=== PATIENT | female | born 1940 | race Caucasian/White ===

== ENCOUNTER 2017-07-01 15:04 | Inpatient (IN) | payer MEDICARE, BC ==
[~2017-07-01] VITALS: Ht 157.5 cm; Wt 59.1 kg
[~2017-07-01 15:04] MED LIST: ALPR.5 PO; AMIT50; ASPI81CH PO; AXERT PO; CHLAMI PO; CLOP75 PO; CONEST.625; CYCL10 PO; DIPATR PO; DIPH50 PO; DRISTAN; ESCI10 PO; ESOM20 PO; ESZO2 PO; HYDACE5 PO; HYDMOR4 PO; HYDPAM25 PO; IBUP800 PO; LEVSOD25 PO; LISI5 PO; LORA1 PO; MECL25 PO; MELA3 PO; METO50 PO; MULVITB&C PO; NITRSPRAY SL; Norco 5-325 Ta1 EACH PO; OMEP10ER PO; ONDA4ODT MM; PEPCID; PIRO10 PO; PRAM.5 PO; PRILOSEC; PROACE100 PO; PROM25 PO; PROP10 PO; PROP20 PO; QUET25 PO; RANI150 PO; SANCTURA; SANCTURA PO; SANTURA PO; SERT100; THEO100ERA PO; THEO200ERA PO; TOLT4; TRAZ50 PO; VERA180ERB; ZOLP6.25 PO; [UNRECOGNIZED DRUG - OTHER]
[2017-07-01] MEDS ORDERED: CLOP75 PO (16:00)
[2017-07-01 16:14] LABS: BASOPHILS PERCENT AUTO 1 % (0-2); EOSINOPHILS ABSOLUTE AUTO 0.68 K/mm3 (0.00-0.68); EOSINOPHILS PERCENT AUTO 7 % (0-6); Hematocrit 43.4 % (33.0-51.0); Hemoglobin 14.6 g/dL (11.5-16.0); IMMATURE GRAN ABSOLUTE AUTO 0.03 K/mm3 (0.00-0.10); IMMATURE GRAN PERCENT AUTO 0 % (0-1); LYMPHOCYTES ABSOLUTE AUTO 2.74 K/mm3 (0.84-5.20); LYMPHOCYTES PERCENT AUTO 28 % (21-46); MONOCYTES ABSOLUTE AUTO 0.76 K/mm3 (0.16-1.47); MONOCYTES PERCENT AUTO 8 % (4-13); Mean Corpuscular HGB 29.8 pg (26.0-34.0); Mean Corpuscular HGB Conc 33.6 g/dL (31.5-36.5); Mean Corpuscular Volume 89 fL (80-100); Mean Platelet Volume 9.7 fL (9.1-12.4); NEUTROPHILS ABSOLUTE AUTO 5.45 K/mm3 (1.96-9.15); NEUTROPHILS PERCENT AUTO 56 % (41-73); Platelet Count 213 K/mm3 (150-400); RDW Coefficient Variation 13.9 % (11.7-14.2); RDW Standard Deviation 45.1 fL (35.1-46.3); White Blood Cell Count 9.76 K/mm3 (4.00-11.30)
[2017-07-01 16:25] LABS: International Normalized Ratio 1.07; Prothrombin Time Results 11.1 Sec (9.7-11.5)
[2017-07-01 16:42] LABS: Alanine Aminotransfer (ALT/SGP 18 U/L (12-78); Albumin, Blood 3.7 g/dL (3.4-5.0); Albumin/Globulin Ratio 1.2 (0.8-1.8); Alk Phos 88 U/L (50-136); Anion Gap 11 mmol/L (6-16); Aspartate Aminotrans (AST/SGOT 17 U/L (12-37); Bilirubin, Total 0.5 mg/dL (0.1-1.0); Blood Urea Nitrogen 16 mg/dL (8-24); Bun/Creatinine Ratio 18.1 (12.0-20.0); CO2, Blood 22 mmol/L (21-32); Calcium, Blood 8.9 mg/dL (8.5-10.1); Chloride, Blood 107 mmol/L (98-108); Creatinine, Blood 0.89 mg/dL (0.40-1.00); Globulin, Blood 3.1 g/dL (2.2-4.0); Glomerular Filtration Rate >60 (60-); Glucose, Blood 83 mg/dL (70-99); Potassium, Blood 3.9 mmol/L (3.5-5.5); Sodium, Blood 140 mmol/L (136-145); Total Protein, Blood 6.8 g/dL (6.4-8.2)
[2017-07-02 02:25] LABS: BASOPHILS PERCENT AUTO 1 % (0-2); EOSINOPHILS ABSOLUTE AUTO 0.88 K/mm3 (0.00-0.68); EOSINOPHILS PERCENT AUTO 10 % (0-6); Hematocrit 39.3 % (33.0-51.0); Hemoglobin 13.2 g/dL (11.5-16.0); IMMATURE GRAN ABSOLUTE AUTO 0.02 K/mm3 (0.00-0.10); IMMATURE GRAN PERCENT AUTO 0 % (0-1); LYMPHOCYTES ABSOLUTE AUTO 3.24 K/mm3 (0.84-5.20); LYMPHOCYTES PERCENT AUTO 38 % (21-46); MONOCYTES ABSOLUTE AUTO 0.71 K/mm3 (0.16-1.47); MONOCYTES PERCENT AUTO 8 % (4-13); Mean Corpuscular HGB 29.9 pg (26.0-34.0); Mean Corpuscular HGB Conc 33.6 g/dL (31.5-36.5); Mean Corpuscular Volume 89 fL (80-100); Mean Platelet Volume 9.6 fL (9.1-12.4); NEUTROPHILS PERCENT AUTO 43 % (41-73); Platelet Count 187 K/mm3 (150-400); RDW Coefficient Variation 13.9 % (11.7-14.2); RDW Standard Deviation 45.3 fL (35.1-46.3); Red Blood Cell Count 4.42 M/mm3 (3.80-5.20); White Blood Cell Count 8.65 K/mm3 (4.00-11.30)
[2017-07-02 02:44] LABS: LDL/HDL RATIO 1.9; Troponin I <0.015 ng/mL (0.000-0.040)
[2017-07-02 02:45] LABS: Anion Gap 5 mmol/L (6-16); Blood Urea Nitrogen 26 mg/dL (8-24); Bun/Creatinine Ratio 22.4 (12.0-20.0); CHOL/HDL RATIO 3.4; CO2, Blood 29 mmol/L (21-32); Calcium, Blood 8.3 mg/dL (8.5-10.1); Chloride, Blood 108 mmol/L (98-108); Cholesterol 151 mg/dL (50-200); Creatinine, Blood 1.16 mg/dL (0.40-1.00); Glomerular Filtration Rate 48 (60-); Glucose, Blood 97 mg/dL (70-99); HDL Cholesterol 45 mg/dL (>39); Low Density Lipoprotein Chol 84 mg/dL (0-110); Potassium, Blood 3.9 mmol/L (3.5-5.5); Sodium, Blood 142 mmol/L (136-145); Triglycerides 108 mg/dL (30-160); Very Low Density Lipoprot Chol 21 mg/dL (6-32)
[2017-07-03] MEDS ORDERED: ASPI325 PO (18:08)
[2017-07-03] MEDS ORDERED: Lipitor20 MG PO (18:08)
[2017-07-03] MEDS ORDERED: ALBU2.5V5 INH (18:08)
[2017-07-03] MEDS ORDERED: Prinivil10 MG PO (18:09)
[2017-07-03] MEDS ORDERED: DOCU100 PO (18:09)
[2017-07-03] MEDS ORDERED: Nitrostat0.4 MG SL (18:10)
[2017-07-03] MEDS ORDERED: Isosorbide Mono30 MG PO (18:11)
[2017-07-03] MEDS ORDERED: PANT40 PO (18:11)
== END 2017-07-03 18:33 | disposition home health service (06) | DRG 65 ==
LOC: ER 15:04 → MEDS 16:34
PROVIDERS: Internal Medicine; Physician Assistant
DX: I63.9 Cerebral infarction, unspecified (principal); J44.1 Chronic obstructive pulmonary disease with (acute) exacerbation; F17.210 Nicotine dependence, cigarettes, uncomplicated; I10 Essential (primary) hypertension; F51.04 Psychophysiologic insomnia; I65.29 Occlusion and stenosis of unspecified carotid artery
CPT/HCPCS: 36415; 70450; 70551; 71046; 78452; 80048; 80053; 80061; 84484; 85025; 85610; 92526; 92610; 93005; 93010; 93017; 93306; 93880; 94760; 97110; 97116; 97161; 97165; 97530; 97535; 99285; A9500; G8978; G8979; G8987; G8988; G8996; G8997; J0280; J1650; J2785

== ENCOUNTER 2017-07-28 07:07 | Day surgery (SDC) | payer MEDICARE, BC ==
[~2017-07-28] VITALS: Ht 160 cm; Wt 64.0 kg
[~2017-07-28 07:07] MED LIST changes: +ALBU2.5V5 INH; +ASPI325 PO; +DOCU100 PO; +Hydrocodone-Ap1 EA23 PO; +Isosorbide Mono30 MG PO; +Lipitor20 MG PO; +METO25ER PO; +Nitrostat0.4 MG SL; +PANT40 PO; +Prinivil10 MG PO; +TROSPIUM CHLORI20 MG PO
[2017-07-28] MEDS ORDERED: CARV3.125 PO (11:51)
== END 2017-07-28 14:00 | disposition home or self-care (01) ==
LOC: MHTC 07:07
PROC: 4A023N7 Measurement of Cardiac Sampling and Pressure, Left Heart, Percutaneous Approach (ICD-10-PCS; principal; 2017-07-28)
PROC: B211YZZ Fluoroscopy of Multiple Coronary Arteries using Other Contrast (ICD-10-PCS; principal; 2017-07-28)
DX: I25.10 Atherosclerotic heart disease of native coronary artery without angina pectoris (principal); R94.39 Abnormal result of other cardiovascular function study; E78.00 Pure hypercholesterolemia, unspecified; E78.5 Hyperlipidemia, unspecified; Z86.73 Personal history of transient ischemic attack (TIA), and cerebral infarction without residual deficits; Q21.1 Atrial septal defect; F41.9 Anxiety disorder, unspecified; F32.9 Major depressive disorder, single episode, unspecified; I25.2 Old myocardial infarction; I10 Essential (primary) hypertension; F17.210 Nicotine dependence, cigarettes, uncomplicated
CPT/HCPCS: 93454; 99152; 99153; C1760; C1769; C1894; J1644; J2250; J3010; J7030; Q9967

== ENCOUNTER 2018-06-14 14:05 | Emergency (ER) | payer MEDICARE, BC ==
[~2018-06-14] VITALS: Ht 157.5 cm; Wt 59.0 kg
[~2018-06-14 14:05] MED LIST changes: +CARV3.125 PO
[2018-06-14 14:43] LABS: BASOPHILS ABSOLUTE AUTO 0.13 K/mm3 (0.00-0.23); BASOPHILS PERCENT AUTO 1 % (0-2); EOSINOPHILS PERCENT AUTO 15 % (0-6); Hematocrit 45.8 % (33.0-51.0); Hemoglobin 15.1 g/dL (11.5-16.0); IMMATURE GRAN ABSOLUTE AUTO 0.03 K/mm3 (0.00-0.10); IMMATURE GRAN PERCENT AUTO 0 % (0-1); LYMPHOCYTES PERCENT AUTO 26 % (21-46); MONOCYTES ABSOLUTE AUTO 0.82 K/mm3 (0.16-1.47); MONOCYTES PERCENT AUTO 8 % (4-13); Mean Corpuscular Volume 88 fL (80-100); Mean Platelet Volume 9.8 fL (9.1-12.4); NEUTROPHILS ABSOLUTE AUTO 5.26 K/mm3 (1.96-9.15); NEUTROPHILS PERCENT AUTO 50 % (41-73); Platelet Count 209 K/mm3 (150-400); RDW Coefficient Variation 14.7 % (11.7-14.2); RDW Standard Deviation 47.6 fL (35.1-46.3); Red Blood Cell Count 5.21 M/mm3 (3.80-5.20); White Blood Cell Count 10.64 K/mm3 (4.00-11.30)
[2018-06-14 15:10] LABS: Alanine Aminotransfer (ALT/SGP 21 U/L (12-78); Albumin, Blood 3.9 g/dL (3.4-5.0); Albumin/Globulin Ratio 1.1 (0.8-1.8); Alk Phos 105 U/L (50-136); Anion Gap 5 mmol/L (6-16); Aspartate Aminotrans (AST/SGOT 22 U/L (12-37); Bilirubin, Total 0.5 mg/dL (0.1-1.0); Blood Urea Nitrogen 12 mg/dL (8-24); Bun/Creatinine Ratio 12.9 (12.0-20.0); CO2, Blood 27 mmol/L (21-32); Calcium, Blood 8.5 mg/dL (8.5-10.1); Chloride, Blood 109 mmol/L (98-108); Creatinine, Blood 0.93 mg/dL (0.40-1.00); Globulin, Blood 3.5 g/dL (2.2-4.0); Glomerular Filtration Rate >60 (60-); Glucose, Blood 69 mg/dL (70-99); Potassium, Blood 4.2 mmol/L (3.5-5.5); Sodium, Blood 141 mmol/L (136-145); Total Protein, Blood 7.4 g/dL (6.4-8.2); Troponin I <0.015 ng/mL (0.000-0.040)
== END 2018-06-14 16:19 | disposition home or self-care (01) ==
LOC: ER 14:05
PROVIDERS: Internal Medicine
DX: R07.9 Chest pain, unspecified (principal); J44.9 Chronic obstructive pulmonary disease, unspecified; Z86.73 Personal history of transient ischemic attack (TIA), and cerebral infarction without residual deficits; I11.0 Hypertensive heart disease with heart failure; I50.9 Heart failure, unspecified; F17.210 Nicotine dependence, cigarettes, uncomplicated; Z79.899 Other long term (current) drug therapy
CPT/HCPCS: 36415; 71046; 80053; 84484; 85025; 93005; 93010; 96374; 96375; 99285-25; J1885; J2405

== ENCOUNTER → 2018-09-16 | Outpatient (CLI) | payer MEDICARE, BC ==
[~2018-09-16] MED LIST changes: +ATOR40TA PO; +ATORVASTATIN CA40 MG PO; +Aspir 8181 MG PO; +Keflex500 MG PO; -Lipitor20 MG PO; -MELA3 PO; +MELATONIN10 M2 PO; +QUETIAPINE FUMA50 MG PO; +SOLIFENACIN SUC10 MG PO
[2018-09-18 15:07] LABS: HPV 16 Negative (Negative); HPV 18 Negative (Negative); HPV OTHER HR TYPES Negative (Negative)
== END | disposition home or self-care (01) ==
LOC: LAB SHORT 15:20 → LAB 15:20
PROVIDERS: Obstetrics & Gynecology Gynecology
DX: Z91.89 Other specified personal risk factors, not elsewhere classified (principal)
CPT/HCPCS: 87624; G0123

== ENCOUNTER 2018-10-25 16:36 | Inpatient (IN) | payer MEDICARE, BC ==
[~2018-10-25] VITALS: Ht 157.5 cm; Wt 64.4 kg
[~2018-10-25 16:36] MED LIST changes: -ATOR40TA PO; -ATORVASTATIN CA40 MG PO; -Aspir 8181 MG PO; -Keflex500 MG PO; -MELATONIN10 M2 PO; -QUETIAPINE FUMA50 MG PO; -SOLIFENACIN SUC10 MG PO
[2018-10-25] MEDS ORDERED: ATORVASTATIN CA40 MG PO (17:13)
[2018-10-25 17:19] LABS: BASOPHILS ABSOLUTE AUTO 0.08 K/mm3 (0.00-0.23); BASOPHILS PERCENT AUTO 1 % (0-2); EOSINOPHILS ABSOLUTE AUTO 0.88 K/mm3 (0.00-0.68); EOSINOPHILS PERCENT AUTO 10 % (0-6); Hematocrit 44.7 % (33.0-51.0); Hemoglobin 14.7 g/dL (11.5-16.0); IMMATURE GRAN ABSOLUTE AUTO 0.02 K/mm3 (0.00-0.10); IMMATURE GRAN PERCENT AUTO 0 % (0-1); LYMPHOCYTES ABSOLUTE AUTO 3.38 K/mm3 (0.84-5.20); LYMPHOCYTES PERCENT AUTO 37 % (21-46); MONOCYTES ABSOLUTE AUTO 0.87 K/mm3 (0.16-1.47); MONOCYTES PERCENT AUTO 10 % (4-13); Mean Corpuscular HGB 29.5 pg (26.0-34.0); Mean Corpuscular HGB Conc 32.9 g/dL (31.5-36.5); Mean Corpuscular Volume 90 fL (80-100); Mean Platelet Volume 9.7 fL (9.1-12.4); NEUTROPHILS ABSOLUTE AUTO 3.97 K/mm3 (1.96-9.15); NEUTROPHILS PERCENT AUTO 43 % (41-73); Platelet Count 201 K/mm3 (150-400); RDW Coefficient Variation 13.7 % (11.7-14.2); RDW Standard Deviation 44.7 fL (35.1-46.3); Red Blood Cell Count 4.98 M/mm3 (3.80-5.20)
[2018-10-25 17:33] LABS: International Normalized Ratio 1.07; Prothrombin Time Results 11.3 Sec (9.7-11.5)
[2018-10-25 17:41] LABS: Albumin, Blood 3.5 g/dL (3.4-5.0); Albumin/Globulin Ratio 1.1 (0.8-1.8); Bilirubin, Total 0.4 mg/dL (0.1-1.0); Bun/Creatinine Ratio 13.4 (12.0-20.0); Calcium, Blood 8.4 mg/dL (8.5-10.1); Creatinine, Blood 1.12 mg/dL (0.40-1.00); Globulin, Blood 3.1 g/dL (2.2-4.0); Potassium, Blood 3.8 mmol/L (3.5-5.5); Total Protein, Blood 6.6 g/dL (6.4-8.2)
[2018-10-25] MEDS ORDERED: ATOR40TA PO (18:59)
[2018-10-25] MEDS ORDERED: SOLIFENACIN SUC10 MG PO (19:00)
[2018-10-25] MEDS ORDERED: QUETIAPINE FUMA50 MG PO (19:00)
[2018-10-25] MEDS ORDERED: CLOP75 PO (19:04)
[2018-10-25] MEDS ORDERED: MELATONIN10 M2 PO (19:12)
[2018-10-25] MEDS ORDERED: Aspir 8181 MG PO (19:12)
[2018-10-26 04:42] LABS: Hematocrit 40.8 % (33.0-51.0); Hemoglobin 13.1 g/dL (11.5-16.0); Mean Corpuscular HGB 29.7 pg (26.0-34.0); Mean Corpuscular HGB Conc 32.1 g/dL (31.5-36.5); Mean Platelet Volume 10.3 fL (9.1-12.4); Platelet Count 163 K/mm3 (150-400); RDW Coefficient Variation 13.6 % (11.7-14.2); RDW Standard Deviation 46.5 fL (35.1-46.3); Red Blood Cell Count 4.41 M/mm3 (3.80-5.20)
[2018-10-26 04:43] LABS: Mean Corpuscular Volume 93 fL (80-100)
--- NOTE | 2018-10-26 04:46 | NUR ---
SHIFT SUMMARY PT NEW ED ADMIT THIS EVENING. CAME IN WITH STROKE LIKE SYMPTOMS THAT WERE ALMOST COMPLETELY RESOLVED BEFORE PT ARRIVED TO ED. PT CONTINUES TO HAVE VERY MINIMAL N/T AND WEAKNESS TO LEFT UPPER AND LOWER EXTREMETIES. OTHERWISE NEURO CHECKS NEGATIVE. PT SLEPT WELL FOR APPROX 4-5 HOURS BUT WOKE THIS AM WITH RESTLESS LEGS. PT WALKING THE HALLS AT THIS TIME. STEADY GAIT. VITAL SIGNS STABLE THIS EVENING. PT COMPLAINS OF SOME ACHINESS IN HER LEFT HAND THAT IS CHRONIC BUT WORSE SINCE HER STROKE LIKE SYMPTOMS. DENIED ANY NEED FOR ANY MEDICATIONS. PT HAS NO ISSUES WITH SWALLOWING, SAKINA FABRICATOR SPECIAL ITEMS NOTIFIED AND NEW ORDER FOR CARDIAC DIET STARTED. PT ATE WELL. VITAL SIGNS STABLE. WILL CONTINUE TO MONITOR.
[2018-10-26 05:02] LABS: Anion Gap 8 mmol/L (6-16); Blood Urea Nitrogen 15 mg/dL (8-24); Bun/Creatinine Ratio 15.8 (12.0-20.0); CO2, Blood 21 mmol/L (21-32); Calcium, Blood 7.9 mg/dL (8.5-10.1); Chloride, Blood 115 mmol/L (98-108); Creatinine, Blood 0.95 mg/dL (0.40-1.00); Glomerular Filtration Rate >60 (60-); Glucose, Blood 182 mg/dL (70-99); Potassium, Blood 3.7 mmol/L (3.5-5.5); Sodium, Blood 144 mmol/L (136-145)
--- NOTE | 2018-10-26 09:37 | NUR ---
LEFT VOICEMAIL WITH DR. VALDERRAMA REPORTING THAT MRI IS CANCELLED DUE TO PT HAVING A LOOP RECORDING DEVICE.
--- NOTE | 2018-10-26 16:41 | NUR ---
SPOKE WITH DR. VALDERRAMA REPORTED THAT PATIENT IS ABLE TO BRING IN A INTEROGATION DEVICE FOR HER LOOP RECORER AND THE LOOP RECORDER CARD THE PATIENT HOLDS SAYS THE DEVICE IS MRI COMPATIBLE. NEW ORDERS RECEIVED TO CANCEL MRI.
--- NOTE | 2018-10-26 18:03 | NUR ---
Spiritual Care intial note: Mrs. Harris was talkative. Her and son were at bedside. She is definately the head of family. She wanted information and education on Advanced Directives. She asked great questions and agreed this would be a useful document. She would like to complete forms once at home. She expressed frustration with medical system at not finding a clear answer for her recurrent chest pain and CVAs. She admits to being fearful, but also says she "is tired of fighting for answers." Apparently, her health problems have been ongoing for decades. I provided prayer and emotional affirmation. Also encouraged she continue to demand clear answers. This is an active, vibrant lady who does not enjoy being too sick to do what she loves. I will remain available.
--- NOTE | 2018-10-26 18:28 | NUR ---
SHIFT SUMMARY OX4; INDEPENDENT. PLEASANT COOPERATIVE. NO CARDIAC EVENTS OR C/O THIS SHIFT. MULTIPLE IMAGING STUDIES COMPLETED TODAY. NEURO CHECKS WITHOUT ANY NEW CHANGES OTHER THAN IMPROVED STRENGTH TO LUE. MULTIPLE FAMILY MEMBERS IN ROOM. LOOP RECORDING DEVICE PREVENTED PT FROM MRI TODAY. NEURO CHECKS Q4. EATING AND DRINKING AND LAUGHING, CHATTING WITH FAMILY THROUGHOUT DAY.
--- NOTE | 2018-10-27 05:00 | NUR ---
SHIFT SUMMARY PT ADMITTED FOR LEFT SIDED WEAKNESS AND SLURRED SPEECH. SHE HAS A HISTORY OF 3 CVA'S PER REPORT. Q4 NEURO CHECKS ORDERED HOWEVER PATIENT REFUSED TO BE WOKE UP FOR NEURO CHECKS THROUGHOUT THE NIGHT SO NEURO CHECKS DONE PT TOLERATED. PT APPEARED TO SLEEP COMFORTABLY THROUGHOUT THE NIGHT WITHOUT ANY APPARENT SIGNS OF ACUTE DISTRESS. ABLE TO MAKE NEEDS KNOWN AND CALL LIGHT IS WITHIN REACH.
[2018-10-27 05:33] LABS: CHOL/HDL RATIO 1.9; Cholesterol 105 mg/dL (50-200); HDL Cholesterol 54 mg/dL (>39); LDL/HDL RATIO 0.6; Low Density Lipoprotein Chol 33 mg/dL (0-110); Triglycerides 90 mg/dL (30-160); Very Low Density Lipoprot Chol 18 mg/dL (6-32)
--- NOTE | 2018-10-27 13:19 | NUR ---
patient discharged with . this rn spoke with physician, able to discharge before a1c result. will call with result. no acute issues noted. follow up appointments scheduled by shelby judge. patient ambulated self out of facility.
--- NOTE | 2018-10-27 13:30 | NUR ---
NOTIFIED PATIENT OF A1C OF 5.7, NO ADDITIONAL ISSUES NOTED.
== END 2018-10-27 12:22 | disposition home health service (06) | DRG 65 ==
LOC: ER 16:36 → MEDS 20:08
PROVIDERS: Internal Medicine; Nurse Practitioner Acute Care; Physician Assistant; ADMIT Hospitalist
DX: I63.9 Cerebral infarction, unspecified (principal); G81.94 Hemiplegia, unspecified affecting left nondominant side; I50.42 Chronic combined systolic (congestive) and diastolic (congestive) heart failure; G45.8 Other transient cerebral ischemic attacks and related syndromes; I70.92 Chronic total occlusion of artery of the extremities; R47.81 Slurred speech; I11.0 Hypertensive heart disease with heart failure; I69.30 Unspecified sequelae of cerebral infarction; F32.9 Major depressive disorder, single episode, unspecified; J44.9 Chronic obstructive pulmonary disease, unspecified; E78.5 Hyperlipidemia, unspecified; K21.9 Gastro-esophageal reflux disease without esophagitis; I25.10 Atherosclerotic heart disease of native coronary artery without angina pectoris; F17.210 Nicotine dependence, cigarettes, uncomplicated; I95.9 Hypotension, unspecified; I70.209 Unspecified atherosclerosis of native arteries of extremities, unspecified extremity
CPT/HCPCS: 36415; 70450; 70496; 70498; 80048; 80053; 80061; 82947; 83036; 85025; 85027; 85610; 92610; 93005; 93010; 93306; 93880; 93970; 94640; 94760; 94762; 96361; 96374-59; 96375-59; 97110; 97112; 97116; 97162; 97165; 97530; 99285-25; J1200; J1650; J2930; J7030; Q9967

== ENCOUNTER 2018-11-20 16:51 | Emergency (ER) | payer MEDICARE, BC ==
[~2018-11-20] VITALS: Ht 152.4 cm; Wt 68.0 kg
[~2018-11-20 16:51] MED LIST changes: +ATOR40TA PO; +ATORVASTATIN CA40 MG PO; +Aspir 8181 MG PO; +MELATONIN10 M2 PO; +QUETIAPINE FUMA50 MG PO; +SOLIFENACIN SUC10 MG PO
== END 2018-11-20 19:28 | disposition home or self-care (01) ==
LOC: ER 16:51
DX: S51.011A Laceration without foreign body of right elbow, initial encounter (principal); W01.0XXA Fall on same level from slipping, tripping and stumbling without subsequent striking against object, initial encounter; Z88.8 Allergy status to other drugs, medicaments and biological substances; Z79.899 Other long term (current) drug therapy; Z79.82 Long term (current) use of aspirin; J44.9 Chronic obstructive pulmonary disease, unspecified; Z86.73 Personal history of transient ischemic attack (TIA), and cerebral infarction without residual deficits; I11.0 Hypertensive heart disease with heart failure; I50.9 Heart failure, unspecified; F17.200 Nicotine dependence, unspecified, uncomplicated
CPT/HCPCS: 12004; 73080; 90471; 90714; 99283-25

== ENCOUNTER 2018-11-22 16:27 | Emergency (ER) | payer MEDICARE, BC ==
[~2018-11-22] VITALS: Ht 157.5 cm; Wt 62.6 kg
[2018-11-22] MEDS ORDERED: Keflex500 MG PO (17:21)
== END 2018-11-22 17:37 | disposition home or self-care (01) ==
LOC: ER 16:27
DX: S51.011D Laceration without foreign body of right elbow, subsequent encounter (principal); W19.XXXD Unspecified fall, subsequent encounter; Z88.8 Allergy status to other drugs, medicaments and biological substances; Z79.899 Other long term (current) drug therapy; Z79.82 Long term (current) use of aspirin; J44.9 Chronic obstructive pulmonary disease, unspecified; Z86.73 Personal history of transient ischemic attack (TIA), and cerebral infarction without residual deficits; I11.0 Hypertensive heart disease with heart failure; I50.9 Heart failure, unspecified; K21.9 Gastro-esophageal reflux disease without esophagitis; F17.200 Nicotine dependence, unspecified, uncomplicated
CPT/HCPCS: 99283

== ENCOUNTER 2018-11-24 11:26 | Emergency (ER) | payer MEDICARE, BC ==
[~2018-11-24] VITALS: Ht 157.5 cm; Wt 63.5 kg
[~2018-11-24 11:26] MED LIST changes: +Keflex500 MG PO
== END 2018-11-24 12:19 | disposition home or self-care (01) ==
LOC: ER 11:26
DX: S51.012D Laceration without foreign body of left elbow, subsequent encounter (principal); X58.XXXD Exposure to other specified factors, subsequent encounter
CPT/HCPCS: 99282

== ENCOUNTER 2021-06-18 20:17 | Inpatient (IN) | payer MEDICARE, BC, OTHER ==
[~2021-06-18] VITALS: Ht 157.5 cm; Wt 62.4 kg
[2021-06-18 20:52] LABS: BASOPHILS ABSOLUTE AUTO 0.09 K/mm3 (0.00-0.23); BASOPHILS PERCENT AUTO 1 % (0-2); EOSINOPHILS ABSOLUTE AUTO 0.32 K/mm3 (0.00-0.68); EOSINOPHILS PERCENT AUTO 3 % (0-6); Hemoglobin 14.8 g/dL (11.5-16.0); IMMATURE GRAN ABSOLUTE AUTO 0.04 K/mm3 (0.00-0.10); IMMATURE GRAN PERCENT AUTO 0 % (0-1); LYMPHOCYTES PERCENT AUTO 21 % (21-46); MONOCYTES ABSOLUTE AUTO 0.78 K/mm3 (0.16-1.47); MONOCYTES PERCENT AUTO 7 % (4-13); Mean Corpuscular HGB 29.3 pg (26.0-34.0); Mean Corpuscular HGB Conc 32.2 g/dL (31.5-36.5); Mean Corpuscular Volume 91 fL (80-100); NEUTROPHILS PERCENT AUTO 68 % (41-73); Platelet Count 196 K/mm3 (150-400); RDW Coefficient Variation 14.7 % (11.7-14.2); RDW Standard Deviation 49.7 fL (35.1-46.3); Red Blood Cell Count 5.05 M/mm3 (3.80-5.20); White Blood Cell Count 11.43 K/mm3 (4.00-11.30)
[2021-06-18 21:05] LABS: Alanine Aminotransfer (ALT/SGP 22 U/L (12-78); Albumin, Blood 3.2 g/dL (3.4-5.0); Albumin/Globulin Ratio 0.9 (0.8-1.8); Alk Phos 118 U/L (50-136); Anion Gap 6 mmol/L (6-16); Aspartate Aminotrans (AST/SGOT 23 U/L (12-37); Bilirubin, Total 0.4 mg/dL (0.1-1.0); Blood Urea Nitrogen 15 mg/dL (8-24); Bun/Creatinine Ratio 17.2 (12.0-20.0); CO2, Blood 25 mmol/L (21-32); Calcium, Blood 8.8 mg/dL (8.5-10.1); Chloride, Blood 113 mmol/L (98-108); Creatinine, Blood 0.87 mg/dL (0.40-1.00); Globulin, Blood 3.7 g/dL (2.2-4.0); Glomerular Filtration Rate >60 (60-); Glucose, Blood 118 mg/dL (70-99); Sodium, Blood 144 mmol/L (136-145); Total Protein, Blood 6.9 g/dL (6.4-8.2)
[2021-06-18 22:08] LABS: Base Excess Venous -1.3 mmol/L; Bicarbonate Venous 23.6 mmol/L (24.0-30.0); PO2 Venous 88.8 mmHg (38-42)
--- NOTE | 2021-06-19 00:05 | NUR ---
CALLED AND RECEIVED REPORT FROM JAILYN SELBY RN.
--- NOTE | 2021-06-19 00:20 | NUR ---
PT ARRIVED TO 340 VIA GURNEY. A/O. TRANSFERRED SELF TO BED. PT ORIENTED TO CALL LT SYSTEM. CALL LT IN REACH. WILL PROVIDE CARE T/O SHIFT.
--- NOTE | 2021-06-19 02:30 | NUR ---
PT STATES SHE'S FEELING A BIT BETTER. RT PLACED A MASK TO DELIVER OXYGEN SINCE PT IS A MOUTH BREATHER. FLUID BOLUS OF LR STARTED AT [address]S ORDERS. WILL CONTINUE TO PROVIDE CARE. CALL LT IN REACH.
--- NOTE | 2021-06-19 02:54 | NUR ---
ASSISTED PT TO BSC. PT VOIDED 300 DARK YELLOW URINE. NO OTHER NEEDS. CALL LT IN REACH.
[2021-06-19 03:02] LABS: BASOPHILS ABSOLUTE AUTO 0.01 K/mm3 (0.00-0.23); BASOPHILS PERCENT AUTO 0 % (0-2); EOSINOPHILS PERCENT AUTO 0 % (0-6); Hemoglobin 12.5 g/dL (11.5-16.0); IMMATURE GRAN ABSOLUTE AUTO 0.03 K/mm3 (0.00-0.10); IMMATURE GRAN PERCENT AUTO 0 % (0-1); LYMPHOCYTES PERCENT AUTO 4 % (21-46); MONOCYTES ABSOLUTE AUTO 0.08 K/mm3 (0.16-1.47); MONOCYTES PERCENT AUTO 1 % (4-13); Mean Corpuscular HGB 29.5 pg (26.0-34.0); Mean Corpuscular HGB Conc 32.9 g/dL (31.5-36.5); Mean Corpuscular Volume 90 fL (80-100); Mean Platelet Volume 9.6 fL (9.1-12.4); NEUTROPHILS ABSOLUTE AUTO 6.78 K/mm3 (1.96-9.15); NEUTROPHILS PERCENT AUTO 94 % (41-73); Platelet Count 165 K/mm3 (150-400); RDW Coefficient Variation 14.6 % (11.7-14.2); RDW Standard Deviation 48.4 fL (35.1-46.3); Red Blood Cell Count 4.24 M/mm3 (3.80-5.20)
[2021-06-19 03:33] LABS: Anion Gap 8 mmol/L (6-16); Blood Urea Nitrogen 15 mg/dL (8-24); Bun/Creatinine Ratio 18.8 (12.0-20.0); CO2, Blood 25 mmol/L (21-32); Chloride, Blood 110 mmol/L (98-108); Glomerular Filtration Rate >60 (60-); Glucose, Blood 149 mg/dL (70-99); Potassium, Blood 3.7 mmol/L (3.5-5.5); Sodium, Blood 143 mmol/L (136-145)
--- NOTE | 2021-06-19 03:53 | NUR ---
FLUID BOLUS COMPLETE. VSS. LS STILL COARSE AND WHEEZY. PT STATES SHE FEELS BETTER. NO OTHER NEEDS. DECLINES ANY RESPIRATORY TREATMENTS. CALL LT IN REACH.
--- NOTE | 2021-06-19 04:02 | NUR ---
SHIFT SUMMARY: ER ADMIT AT 0015. A/O. PLEASANT AND COOPERATIVE WITH CARE. CURRENTLY ON 3L VIA MASK, PT STATES SHE CAN'T BREATHE THROUGH HER NOSE. SR WITH PVC'S AT 95 ON TELE. FLUID BOLUS GIVEN FOR SOFT BP OF 98/50 WITH THERAPEUTIC RESULTS, 116/61, HR 98. PT STATES FEELING BETTER. LS ARE COARSE T/O. SBA TO BSC D/T FEELING WEAK. DIZZY AT TIMES. WILL CONTINUE TO PROVIDE CARE UNTIL SHIFT REPORT TO ONCOMING NURSE.
--- NOTE | 2021-06-19 05:51 | NUR ---
NOTIFIED HOSPITALIST OF CRITICAL LACTIC ACID OF 4.4. VITALS STABLE. NEW ORDER TO REDRAW LACTIC IN 4HRS PLACED.
--- NOTE | 2021-06-19 18:23 | NUR ---
SHIFT SUMMARY- PT HAS HAD NO ACUTE CHANGE T/O THE DAY, SHE WORKED WITH PHYSICAL THERAPY AND WAS ABLE TO TOLLERATE THE NASAL CANNULA FOR A SHORT TIME. BP WAS A BIT SOFT THIS MORNING DR AWARE AND INCREASED FLUID RATE TO 200ML/HR. SBP 112 ON EVENING VITALS. PT HAD RT UP TO HER ROOM, AFTER A COUPLE OF BOUTS OF COUGHING, FOR A BREATHING Tx. PRN Tx ADDED BY RT PER PROTOCOL. PT ALERT AND ORIENTED 1PA FOR AMBULATION AND TRANSFERS. PT STATED SHE IS HAVING DIFFICULTY SWALLOWING PILLS SO APPLESAUCE WAS USED AN AID AND SHE HAD NO DIFFICULTY WITH THE PILLS. PT CURRENTLY SITTING UP IN A RECLINER AND VISITING WITH FAMILY NO S&S OF DITRESS NOTED AT THIS TIME WILL CTM AND PASS ON TO NIGHT RN IN BEDSIDE REPORT.
--- NOTE | 2021-06-20 02:49 | NUR ---
RESPIRATORY: PATIENT WOKE FROM SLEEP ANXIOUS, SOB UNABLE TO TOLERATE VENTI MASK. RT IS IN THE ROOM AND IS ASSISTING, PATIENT IS HIGHLY ANXIOUS. HEART RATE IS IN THE 140'S. DR ALONSO IS CALLED AND COMES TO THE BEDSIDE TO EVAL PATIENT. ODRERS TO STOP IVF, STAT CXR, ABG, CPAP, TELI AND TRANSFER TO PCU. REPORT WAS CALLED TO MICHELE DINERO.
[2021-06-20 03:23] LABS: PCO2 Arterial 43.2 mmHg (35-45); PO2 Arterial 133 mmHg (80-100); pH Blood Arterial 7.33 (7.35-7.45)
--- NOTE | 2021-06-20 04:47 | NUR ---
CARE ASSUMPTION: RECEIVED REPORT FROM [facility] RN. PATIENT TRANSFERRED FROM [facility] VIA BED AND WAS SLID TO PCU BED. PATIENT SAT UP AND PULLED VENTI MASK OFF SAYING "I CAN'T BREATHE." SHE WAS TACHYCARDIC AND TACHYPNEIC WITH HR 150S AND RR >24. RT WAS AT BEDSIDE ATTEMPTING TO APPLY BIPAP. PATIENT REFUSED AND ASKED EVERYONE TO STEP BACK AND GIVE HER ROOM. AFTER ASSISTING STAFF LEFT THE PATIENT'S BREATHING RATE STABILIZED, HR DROPPED TO 100S, AND SHE LAID DOWN TO SLEEP. O2 >94% ON BIPAP WITH 7L BLEED. AT TIME OF THIS NOTE O2 IS >86%, DR. MITCHELL IS WAITING ON [facility]NP LAB TO POST, AND PATIENT IS ASLEEP IN BED. BED LOW WITH CALL LIGHT IN REACH. WILL CONTINUE TO MONITOR AND REPORT TO ONCOMING RN.
[2021-06-20 09:02] LABS: Base Excess Venous 0.6 mmol/L; PCO2 Venous 47.1 mmHg (38-42); pH Blood Venous 7.35 (7.34-7.37)
[2021-06-20 09:10] LABS: BASOPHILS ABSOLUTE AUTO 0.05 K/mm3 (0.00-0.23); BASOPHILS PERCENT AUTO 0 % (0-2); EOSINOPHILS ABSOLUTE AUTO 0.01 K/mm3 (0.00-0.68); EOSINOPHILS PERCENT AUTO 0 % (0-6); Hematocrit 40.1 % (33.0-51.0); IMMATURE GRAN ABSOLUTE AUTO 0.41 K/mm3 (0.00-0.10); IMMATURE GRAN PERCENT AUTO 2 % (0-1); LYMPHOCYTES ABSOLUTE AUTO 0.48 K/mm3 (0.84-5.20); LYMPHOCYTES PERCENT AUTO 2 % (21-46); MONOCYTES ABSOLUTE AUTO 0.59 K/mm3 (0.16-1.47); MONOCYTES PERCENT AUTO 2 % (4-13); Mean Corpuscular HGB 29.3 pg (26.0-34.0); Mean Corpuscular HGB Conc 32.4 g/dL (31.5-36.5); Mean Corpuscular Volume 90 fL (80-100); Mean Platelet Volume 10.6 fL (9.1-12.4); NEUTROPHILS ABSOLUTE AUTO 23.75 K/mm3 (1.96-9.15); NEUTROPHILS PERCENT AUTO 94 % (41-73); Platelet Count 172 K/mm3 (150-400); RDW Standard Deviation 49.5 fL (35.1-46.3); Red Blood Cell Count 4.44 M/mm3 (3.80-5.20); White Blood Cell Count 25.29 K/mm3 (4.00-11.30)
[2021-06-20 09:27] LABS: Alanine Aminotransfer (ALT/SGP 50 U/L (12-78); Albumin, Blood 2.9 g/dL (3.4-5.0); Albumin/Globulin Ratio 0.9 (0.8-1.8); Alk Phos 74 U/L (50-136); Anion Gap 5 mmol/L (6-16); Aspartate Aminotrans (AST/SGOT 53 U/L (12-37); Bilirubin, Total 0.4 mg/dL (0.1-1.0); Blood Urea Nitrogen 22 mg/dL (8-24); Bun/Creatinine Ratio 26.1 (12.0-20.0); CO2, Blood 28 mmol/L (21-32); Calcium, Blood 8.7 mg/dL (8.5-10.1); Chloride, Blood 107 mmol/L (98-108); Creatinine, Blood 0.84 mg/dL (0.40-1.00); Globulin, Blood 3.3 g/dL (2.2-4.0); Glomerular Filtration Rate >60 (60-); Glucose, Blood 136 mg/dL (70-99); Potassium, Blood 4.2 mmol/L (3.5-5.5); Sodium, Blood 140 mmol/L (136-145); Total Protein, Blood 6.2 g/dL (6.4-8.2)
[2021-06-20] MEDS ORDERED: ALBU90OI INH (12:00)
[2021-06-20] MEDS ORDERED: TIOT18 INH (12:01)
[2021-06-20] MEDS ORDERED: Ventolin5 MG/1 ML INH (12:02)
[2021-06-20] MEDS ORDERED: DULO30 PO (12:03)
--- NOTE | 2021-06-20 13:20 | NUR ---
Echocardiogram using 0.50ml of Definity contrast perfromed.
--- NOTE | 2021-06-20 16:03 | NUR ---
PT RETURNED FROM LANDSCAPE DESIGNER, HEPARIN RESTARTED AT SAME RATE PER CARDIOLOGY AND PER PHARMACY. NO ACUTE DISTRESS, VSS. NO HEMATOMA OR DISCHARGE NOTED, TR BAND IN PLACE.
--- NOTE | 2021-06-20 18:19 | NUR ---
PT ON BIPAP AT START OF SHIFT WITH 7 L BLEED IN. PT ALERT AND ORIENTED TO SELF, PLACE AND SITUATION, CAN BE FORGETFUL AT TIMES. PT WAS VERY ANXIOUS AT TIMES THROUGHOUT THE SHIFT, WOULD HAVE COUGHING FITS AND HAVE TROUBLE RECOVERING TO FULL BREATH. THIS MORNING WITH REPOSITIONING FOR BEDSIDE ECHO, THE PATIENT BECAME EXTREMELY ANXIOUS AND HEART RATE INCREASED FROM LOW 100s TO 150s. BLOOD PRESSURE WAS STABLE, RT ADMINISTERED A BREATHING TREATMENT AT THAT TIME AND DR. EDWARDS NOTIFIED. PT ENDORSED FEELING TIGHTNESS IN HER CHEST IN ADDITION TO A MARKED INCREASE IN SOB. PHYSICIANS ROUNDED AT BEDSIDE, ORDERS FOR IV CARDIZEM GIVEN AND ADMINISTERED PER EMAR. Pt'S HR DECREASED TO 110S FOR REST OF THE SHIFT, DR. EDWARDS AND ROUNDING PHYSICIANS AWARE IN THE AFTERNOON. PT HAD ADDITIONAL OUTBURSTS OF ANXIETY AND WOULD BE UNABLE TO HAVE ANYTHING TOUCHING HER FACE TO PROVIDE O2, PT WAS IN TRIPOD POSITION HOLDING THE BIPAP MASK SEVERAL INCHES IN FRONT OF HER, DECLINING TO ALLOW ADMINISTRATION OF O2 BY NASAL CANNULA OR NON-REBREATHER ALTERNATIVES. DR. SAEZ NOTIFIED AND CAME TO BEDSIDE, ORDERS FOR ONE TIME IV ATIVAN GIVEN. PT TOLERATED WELL, WAS THEN ABLE TO HAVE O2 REAPPLIED, PT WAS ABLE TO BE TITRATED DOWN TO 4L VIA NASAL CANNULA AND HAS REMAINED ON 4 L BY END OF SHIFT. PT HAD NON-PRODUCTIVE COUGH THROUGH MOST OF SHIFT, WAS ABLE TO PRODUCE BROWN SPUTUM ONCE DURING THE AFTERNOON. STATES THAT SHE FEELS SHE NEEDS TO COUGH PRODUCTIVELY BUT IS UNABLE. PT WAS ABLE TO USE BEDSIDE COMMODE WITH STANDBY ASSIST. PTs FAMILY WAS AT BEDSIDE THROUGHOUT SHIFT, QUESTIONS ANSWERED TO SATISFACTION.
--- NOTE | 2021-06-20 18:53 | NUR ---
PT HAD MINIMAL LEFT SIDED DEFICITS AT START OF SHIFT, SIMILAR TO BASELINE PER FAMILY. PT DID NOT HAVE A NOTICEABLE FACIAL DROOP AT START OF SHIFT, HOWEVER A LEFT FACIAL DROOP WAS NOTED BY THIS RN IN THE AFTERNOON PRIOR TO ADMINISTRATION OF ATIVAN. PT'S FAMILY ENDORSED THAT THE CHANGE IN FACIAL DROOP WAS SIGNIFICANTLY MORE PROMINANT THAN AT THE PATIENT'S BASELINE. NO CHANGE IN MOTOR OR SENSORY DEFICITS. DR. EDWARDS NOTIFIED.
--- NOTE | 2021-06-20 19:34 | NUR ---
CARE ASSUMPTION: RECEIVED REPORT FROM BAR YOUNG. PATIENT IN BED WITH 4L NC IN PLACE, O2 SAT 94%. GRANDDAUGHTER AT BEDSIDE AND SON TO STAY IN ROOM TONIGHT. PATIENT STATES SHE FEELS COMFORTABLE RIGHT NOW BUT "IT CAN CHANGE IN A MINUTE." RT RAMON BROUGHT COLORING SUPPLIES THAT PATIENT IS WORKING ON. ORAL CARE SUPPLIES HAVE BEEN PROVIDED AND O2 HAS BEEN HUMIDIFIED.
[2021-06-21 04:05] LABS: BASOPHILS ABSOLUTE AUTO 0.02 K/mm3 (0.00-0.23); BASOPHILS PERCENT AUTO 0 % (0-2); EOSINOPHILS ABSOLUTE AUTO 0.01 K/mm3 (0.00-0.68); EOSINOPHILS PERCENT AUTO 0 % (0-6); Hematocrit 34.4 % (33.0-51.0); Hemoglobin 11.2 g/dL (11.5-16.0); IMMATURE GRAN ABSOLUTE AUTO 0.23 K/mm3 (0.00-0.10); IMMATURE GRAN PERCENT AUTO 1 % (0-1); LYMPHOCYTES ABSOLUTE AUTO 0.56 K/mm3 (0.84-5.20); LYMPHOCYTES PERCENT AUTO 3 % (21-46); MONOCYTES ABSOLUTE AUTO 0.36 K/mm3 (0.16-1.47); MONOCYTES PERCENT AUTO 2 % (4-13); Mean Corpuscular HGB 28.9 pg (26.0-34.0); Mean Corpuscular HGB Conc 32.6 g/dL (31.5-36.5); Mean Corpuscular Volume 89 fL (80-100); NEUTROPHILS ABSOLUTE AUTO 16.45 K/mm3 (1.96-9.15); NEUTROPHILS PERCENT AUTO 93 % (41-73); Platelet Count 142 K/mm3 (150-400); RDW Coefficient Variation 15.1 % (11.7-14.2); Red Blood Cell Count 3.88 M/mm3 (3.80-5.20); White Blood Cell Count 17.63 K/mm3 (4.00-11.30)
[2021-06-21 04:37] LABS: Albumin, Blood 2.5 g/dL (3.4-5.0); Albumin/Globulin Ratio 0.8 (0.8-1.8); Bilirubin, Total 0.5 mg/dL (0.1-1.0); Bun/Creatinine Ratio 27.5 (12.0-20.0); Calcium, Blood 8.3 mg/dL (8.5-10.1); Creatinine, Blood 0.87 mg/dL (0.40-1.00); Potassium, Blood 4.1 mmol/L (3.5-5.5); Total Protein, Blood 5.5 g/dL (6.4-8.2)
--- NOTE | 2021-06-21 05:41 | NUR ---
SHIFT SUMMARY: PATIENT A&0 X4, FAMILY AT BEDSIDE, TACHYCARDIC, O2 SATS >92% ON 4L NC. PATIENT TOLERATING NC WELL, ESPECIALLY WITH MILD HUMIDIFICATION. NO PANIC ATTACKS THIS SHIFT AND SLEPT WELL T/O NIGHT. MEDICATED PER EMAR. PATIENT CALLS APPROPRIATELY. WILL CONTINUE TO MONITOR AND REPORT TO ONCOMING RN.
--- NOTE | 2021-06-21 19:23 | NUR ---
SHIFT SUMMARY NO ACUTE EVENTS THIS SHIFT, VSS. PT ALERT AND ORIENTED, COOPERATIVE WITH CARE. PT'S FAMILY AT BEDSIDE WHICH HELPS DECREASE THE PATIENT'S ANXIETY LEVEL. PT ON 4 L VIA NASAL CANNULA AT START OF SHIFT, TITRATED DOWN TO 3 L BY END OF SHIFT. PT ABLE TO USE BEDSIDE COMMODE WITH SBA ASSIST FOR O2 LINE MANAGEMENT, TOLERATED WELL WITH NO INCREASE IN HR WITH ACTIVITY TODAY. PT REMAINED IN NSR 90s TO SINUS TACH 110s THIS SHIFT. PT DENIED CHEST PAIN/TIGHTNESS, DENIED SHORTNESS OF BREATH.
--- NOTE | 2021-06-21 21:30 | NUR ---
ASSUMED CARE OF PATIENT AT APPROXIMATELY 1905 FROM HANNAH Kwong RN. PATIENT ALERT AND ORIENTED; FORGETFUL AT TIMES. PATIENT DENIES PAIN, DIZZINESS, AND NAUSEA. PATIENT'S SON BEDSIDE; HELPS TO CALM PATIENT. ST ON TELE; OXYGEN SATURATION ABOVE 90% ON 3LPM VIA NC. PIV X2 S/L. SBA OUT OF BED.
--- NOTE | 2021-06-22 05:59 | NUR ---
ASSUMED CARE AT 1900 PT IS ALERT AND ORIENTED X4. HR IN THE 100'S WITH BBB PVC. PT HAS WHEEZES IN UPPER LOBES AND FINE CRACKLES IN LOWER LOBES. SON STAYED THE NIGHT AND HELPED WITH ANXIETY. PT IS SOB WITH EXERTION.
--- NOTE | 2021-06-22 06:17 | NUR ---
PATIENT SLEPT ABOUT SEVEN HOURS LAST NIGHT. NO ACUTE CHANGES.
[2021-06-22 07:13] LABS: BASOPHILS ABSOLUTE AUTO 0.02 K/mm3 (0.00-0.23); BASOPHILS PERCENT AUTO 0 % (0-2); EOSINOPHILS PERCENT AUTO 0 % (0-6); Hematocrit 33.6 % (33.0-51.0); Hemoglobin 10.9 g/dL (11.5-16.0); IMMATURE GRAN ABSOLUTE AUTO 0.16 K/mm3 (0.00-0.10); IMMATURE GRAN PERCENT AUTO 1 % (0-1); LYMPHOCYTES ABSOLUTE AUTO 0.83 K/mm3 (0.84-5.20); LYMPHOCYTES PERCENT AUTO 6 % (21-46); MONOCYTES ABSOLUTE AUTO 0.41 K/mm3 (0.16-1.47); MONOCYTES PERCENT AUTO 3 % (4-13); Mean Corpuscular HGB 28.9 pg (26.0-34.0); Mean Corpuscular HGB Conc 32.4 g/dL (31.5-36.5); Mean Corpuscular Volume 89 fL (80-100); NEUTROPHILS PERCENT AUTO 90 % (41-73); Platelet Count 154 K/mm3 (150-400); RDW Coefficient Variation 14.7 % (11.7-14.2); RDW Standard Deviation 47.7 fL (35.1-46.3); Red Blood Cell Count 3.77 M/mm3 (3.80-5.20); White Blood Cell Count 14.22 K/mm3 (4.00-11.30)
[2021-06-22 07:33] LABS: Bun/Creatinine Ratio 37.2 (12.0-20.0); Calcium, Blood 8.4 mg/dL (8.5-10.1); Creatinine, Blood 0.78 mg/dL (0.40-1.00)
--- NOTE | 2021-06-22 09:58 | NUR ---
CARE ASSUMPTION THIS RN ASSUMED CARE FROM LAINEY RN AND STUDENT NURSE AT 0700. VSS. SPO2 >90% ON 3L NC. TELE SR BBB 96. PATIENTIS ALERT AND ORIENTED X4. NERUO IS INTACT. PERRLA. 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 PATIENT HAS EXPIRATORY UPPER WHEZES AND LOWER WHEEZES. PATIENT REPORTS NO SHORTNESS OF BREATH. PATIENT REPORTS NO PAIN. PATIENT REPORTS NO CHEST PAIN/PRESSURE. STRONG RADIAL AND PEDIS PULSES BILATERALLY. PATIENT SKIN IS CLEAN DRY AND INTACT. ABD IS SOFT NONTENDER AND ACTIVE. SEE SHIFT ASSESSMENT FOR FULL DETAILS. PATIENT SON WAS AT BESIDE THIS MORNING. PATIENT TAKES MORNING MEDS WITH APPLESAUCE. PATIENT CAN INDEPDENTLY DO ADLS JUST NEEDS A STAND BY ASSIST OR TO GIVE HER THE ITEMS. THIS RN USED THERPAEUTIC COMMUNICATION AND ACTIVE LISTENING. PATIENT HAS NO CONCERNS OR QUESTIONS AT THIS TIME. CALL LIGHT WITHIN REACH AND BED IN LOWEST POSITON. WILL CONTINUE TO MONITOR AND PROVIDE CARE.
--- NOTE | 2021-06-22 17:49 | NUR ---
SHIFT SUMMARY PATIENT NEURO REMAINS INTACT. VSS. MED WITH TELE. PATIENT HAD A SHOWER TODAY AND LINEN CHANGE. PATIENT PERFOMED OWN ADLS, IS JUST A STAND BY ASSIST. PATIENT CALLS APPROPRIATELY. NO ACUTE CHANGES THIS SHIFT. CALL LIGHT WITHIN REACH AND BED IN LOWEST POSITION. WILL CONITNUE TO [facility] AND PROVIDE CARE UNTIL HAND OFF WITH NEXT SHIFT.
[2021-06-23 04:38] LABS: Hematocrit 36.5 % (33.0-51.0); Hemoglobin 11.7 g/dL (11.5-16.0); Mean Corpuscular HGB 28.7 pg (26.0-34.0); Mean Corpuscular HGB Conc 32.1 g/dL (31.5-36.5); Mean Corpuscular Volume 90 fL (80-100); Mean Platelet Volume 11.1 fL (9.1-12.4); Platelet Count 180 K/mm3 (150-400); RDW Coefficient Variation 14.6 % (11.7-14.2); RDW Standard Deviation 47.6 fL (35.1-46.3); Red Blood Cell Count 4.08 M/mm3 (3.80-5.20); White Blood Cell Count 15.52 K/mm3 (4.00-11.30)
[2021-06-23 04:59] LABS: BAND PERCENT MAN 9 % (0-8); BASOPHILS PERCENT MAN 0 % (0-2); EOSINOPHILS ABSOLUTE MAN 0.15 K/mm3 (0.00-0.68); EOSINOPHILS PERCENT MAN 1 % (0-6); LYMPHOCYTES ABSOLUTE MAN 1.08 K/mm3 (0.84-5.20); LYMPHOCYTES PERCENT MAN 7 % (21-46); METAMYELOCYTE ABSOLUTE MAN 0.15 K/mm3 (0.00-0.00); METAMYELOCYTE PERCENT MAN 1 % (0-0); MONOCYTES ABSOLUTE MAN 0.62 K/mm3 (0.16-1.47); MONOCYTES PERCENT MAN 4 % (4-13); SEG NEUTROPHILS PERCENT MAN 78 % (41-73); TOTAL CELLS COUNTED 100
--- NOTE | 2021-06-23 05:35 | NUR ---
End of shift summary Pt overall stable but requiring 1-2L at night, while awake she is 90-94% room air. She admits to smoking and oxygen would not work safely. VSS, no pain, looks forward to discharge in the am. Joseph Reynolds RN
--- NOTE | 2021-06-23 09:53 | NUR ---
0950 RT KINGSLEY Kwong STATED SHE PLACED PT ON RA AND TO NOT TITRATE OXYGEN, AND THAT SHE PLANNED ON WALKING HER AND WOULD BE BACK IN 15-20 MINUTES. SPO2 AT 95, HR AT 93%. 09 HR 96 SPO2 90%
[2021-06-23 11:34] LABS: Bun/Creatinine Ratio 34.1 (12.0-20.0); Calcium, Blood 8.4 mg/dL (8.5-10.1); Creatinine, Blood 0.85 mg/dL (0.40-1.00); Potassium, Blood 4.1 mmol/L (3.5-5.5)
--- NOTE | 2021-06-23 14:53 | NUR ---
PT PULLING LESS THAN 500ML WITH INCENTIVE SPIROMETER
[2021-06-24 04:12] LABS: Hematocrit 35.7 % (33.0-51.0); Hemoglobin 11.7 g/dL (11.5-16.0); Mean Corpuscular HGB 29.1 pg (26.0-34.0); Mean Corpuscular HGB Conc 32.8 g/dL (31.5-36.5); Mean Corpuscular Volume 89 fL (80-100); Mean Platelet Volume 10.6 fL (9.1-12.4); NRBC ABSOLUTE 0.03 K/mm3 (0.00-0.02); NRBC Auto 0.2 /100 WBC (0.0-0.2); Platelet Count 187 K/mm3 (150-400); RDW Coefficient Variation 14.6 % (11.7-14.2); RDW Standard Deviation 47.2 fL (35.1-46.3); Red Blood Cell Count 4.02 M/mm3 (3.80-5.20); White Blood Cell Count 15.21 K/mm3 (4.00-11.30)
[2021-06-24 04:28] LABS: Calcium, Blood 7.9 mg/dL (8.5-10.1); Creatinine, Blood 0.8 mg/dL (0.40-1.00)
[2021-06-24 05:01] LABS: BAND PERCENT MAN 2 % (0-8); BASOPHILS PERCENT MAN 0 % (0-2); EOSINOPHILS ABSOLUTE MAN 0.91 K/mm3 (0.00-0.68); EOSINOPHILS PERCENT MAN 6 % (0-6); LYMPHOCYTES % ATYPICAL MANUAL 1 % (0-0); LYMPHOCYTES ABSOLUTE MAN 1.97 K/mm3 (0.84-5.20); LYMPHOCYTES PERCENT MAN 12 % (21-46); METAMYELOCYTE PERCENT MAN 2 % (0-0); MONOCYTES ABSOLUTE MAN 0.76 K/mm3 (0.16-1.47); MONOCYTES PERCENT MAN 5 % (4-13); MYELOCYTE PERCENT MAN 2 % (0-0); NEUTROPHILS ABSOLUTE MAN 10.95 K/mm3 (1.96-9.15); SEG NEUTROPHILS PERCENT MAN 70 % (41-73); TOTAL CELLS COUNTED 100
--- NOTE | 2021-06-24 06:13 | NUR ---
End of shift summary Overnoc went well, pt stated she slept better, and feels overall improved from yesterday. VSS, afebrile, 5-6L NC with humidity or CPAP with 6L bleeding in. output good, no pain, CPAP on majority of night, will continue to monitor BAR Ruiz
--- NOTE | 2021-06-24 08:02 | NUR ---
ASSUME CARE: I assumed care of this patient at 0700.
--- NOTE | 2021-06-24 09:49 | NUR ---
PHONE CALL: Pt's granddaughter called for update. Pt notified and gave RN verbal permission to release information to her granddaughter.
--- NOTE | 2021-06-24 13:06 | NUR ---
TELEMETRY CHANGES: senior engineering technician informed RN of possible telemetry changes. Dr Delacruz called and notified; telephone order for ekg.
[2021-06-24 16:50] LABS: Influenza A, PCR NEGATIVE (NEGATIVE); Influenza B, PCR NEGATIVE (NEGATIVE); Resp Syncytial Virus, PCR NEGATIVE (NEGATIVE); SARS-Cov-2 (COVID-19) PCR, MMC NEGATIVE (NEGATIVE)
--- NOTE | 2021-06-24 19:26 | NUR ---
SHIFT SUMMARY: Pt up to bedside commode with assistance. She ambulated to the shower with portable O2. Pt complains of hospital food and states she would like to go home. She voices frustration with having to stay in the hospital another night. Family has been at bedside throughout the day and supportive of pt.
[2021-06-25 03:56] LABS: Hematocrit 34.4 % (33.0-51.0); Hemoglobin 11.2 g/dL (11.5-16.0); Mean Corpuscular HGB 29.1 pg (26.0-34.0); Mean Corpuscular HGB Conc 32.6 g/dL (31.5-36.5); Mean Corpuscular Volume 89 fL (80-100); Mean Platelet Volume 10.5 fL (9.1-12.4); NRBC ABSOLUTE 0.02 K/mm3 (0.00-0.02); NRBC Auto 0.1 /100 WBC (0.0-0.2); Platelet Count 200 K/mm3 (150-400); RDW Coefficient Variation 14.6 % (11.7-14.2); RDW Standard Deviation 46.6 fL (35.1-46.3); Red Blood Cell Count 3.85 M/mm3 (3.80-5.20); White Blood Cell Count 14.57 K/mm3 (4.00-11.30)
[2021-06-25 04:19] LABS: BAND PERCENT MAN 3 % (0-8); BASOPHILS PERCENT MAN 0 % (0-2); EOSINOPHILS ABSOLUTE MAN 0.29 K/mm3 (0.00-0.68); EOSINOPHILS PERCENT MAN 2 % (0-6); LYMPHOCYTES ABSOLUTE MAN 0.87 K/mm3 (0.84-5.20); LYMPHOCYTES PERCENT MAN 6 % (21-46); MONOCYTES ABSOLUTE MAN 1.16 K/mm3 (0.16-1.47); MONOCYTES PERCENT MAN 8 % (4-13); MYELOCYTE ABSOLUTE MAN 0.14 K/mm3 (0.00-0.00); MYELOCYTE PERCENT MAN 1 % (0-0); NEUTROPHILS ABSOLUTE MAN 12.09 K/mm3 (1.96-9.15); SEG NEUTROPHILS PERCENT MAN 80 % (41-73); TOTAL CELLS COUNTED 100
--- NOTE | 2021-06-25 06:14 | NUR ---
End of shift summary Overnight without issues, VSS, 2-3L NC while asleep. BAR Ruiz
[2021-06-25 09:02] LABS: Bun/Creatinine Ratio 21.6 (12.0-20.0); Calcium, Blood 8.1 mg/dL (8.5-10.1); Creatinine, Blood 0.79 mg/dL (0.40-1.00); Potassium, Blood 4.4 mmol/L (3.5-5.5)
--- NOTE | 2021-06-25 09:40 | NUR ---
AM NOTE: PATIENT ALERT AND ORIENTED X4. OVERALL SOME WEAKNESS NOTED WHEN UP, STAND BY ASSIST TO BSC. STATES SHE HAS NUMBNESS/TINGLING TO LEFT UPPER AND LOWER EXTREMITIES DUE TO HISTORY OF CVA. TELE SHOWING SINUS RHYTHM WITH HR 80-90'S. BP STABLE. DENIES CHEST PAIN/PRESSURE. VERY MINIMAL EDEMA IN LOWER EXTREMITIES. STRONG PULSES. ON 1-2L NASAL CANNULA WHEN UP TO BATHROOM OR SLEEPING AT NIGHT. ROOM AIR AT THIS TIME RESTING IN BED. SATING 89-91% ON ROOM AIR. PLAN FOR HOME O2 EVAL. DENIES ABDOMINAL PAIN/NAUSEA. VOIDING WELL. TOLERATING PO DIET. DRINKING FLUIDS. DR. EDWARDS, DR. Arevalo AND DR. MATTHEWS ALL IN TO ASSESS THIS AM. NO NEW ORDERS FOR THIS RN. POSSIBLY DISCHARGE THIS AFTERNOON. DENIES NEEDS AT THIS TIME. COLORING IN BED. CALL LIGHT IN REACH. WILL CONTINUE TO MONITOR.
[2021-06-25] MEDS ORDERED: ATOR40TA PO (11:03)
[2021-06-25] MEDS ORDERED: Tessalon200 MG PO (11:08)
[2021-06-25] MEDS ORDERED: MUCINEX600 MG PO (11:09)
[2021-06-25] MEDS ORDERED: Nicoderm Cq1 EAC1 TOP (11:10)
[2021-06-25] MEDS ORDERED: Prednisone10 MG PO (11:12)
[2021-06-25] MEDS ORDERED: TROSPIUM CHLORI20 MG PO (11:13)
[2021-06-25] MEDS ORDERED: AIRDUO RESPICL1 EAC5 INH (11:14)
--- NOTE | 2021-06-25 15:06 | NUR ---
DISCHARGE: NO ACUTE CHANGES. SEE PREVIOUS NOTE FOR UPDATES. DISCHARGE INSTRUCTIONS REVIEWED. EDUCATION PROVIDED ON SMOKING CESSATION AND THE DANGERS OF SMOKING WITH OXYGEN. PATIENT ABLE TO VERBALIZE AND TEACH BACK. FOLLOW UP AND MEDS REVIEWED WITH PATIENT AND GRANDDAUGHTER AT BEDSIDE. IV TAKEN OUT PER PROTOCOL, WNL. PATIENT LEFT UNIT VIA WHEELCHAIR, WITH ALL PERSONAL BELONGINGS.
== END 2021-06-25 14:47 | disposition home or self-care (01) | DRG 871 ==
LOC: ER 20:17 → MEDS 22:43 → PCU 06-19 00:08 → ER 06-19 00:08 → MEDS 06-19 00:08 → PCU 06-20 03:36 → MEDS 06-20 03:36 → PCU 06-22 13:05
PROVIDERS: Hospitalist; Student in an Organized Health Care Education/Training Program; ADMIT Family Medicine
PROC: 3E03329 Introduction of Other Anti-infective into Peripheral Vein, Percutaneous Approach (ICD-10-PCS; 2021-06-18)
PROC: 5A09457 Assistance with Respiratory Ventilation, 24-96 Consecutive Hours, Continuous Positive Airway Pressure (ICD-10-PCS; principal; 2021-06-20)
DX: A41.9 Sepsis, unspecified organism (principal); J96.01 Acute respiratory failure with hypoxia; J18.9 Pneumonia, unspecified organism; I50.21 Acute systolic (congestive) heart failure; I48.92 Unspecified atrial flutter; E87.2 Acidosis; Z20.822 Contact with and (suspected) exposure to COVID-19; R65.20 Severe sepsis without septic shock; R79.1 Abnormal coagulation profile; I11.0 Hypertensive heart disease with heart failure; J43.9 Emphysema, unspecified; F32.A Depression, unspecified; K21.9 Gastro-esophageal reflux disease without esophagitis; Z71.6 Tobacco abuse counseling; F17.210 Nicotine dependence, cigarettes, uncomplicated; Z86.73 Personal history of transient ischemic attack (TIA), and cerebral infarction without residual deficits; Z86.718 Personal history of other venous thrombosis and embolism; Z90.710 Acquired absence of both cervix and uterus; Z90.89 Acquired absence of other organs; Z79.02 Long term (current) use of antithrombotics/antiplatelets; Z79.82 Long term (current) use of aspirin; Z79.899 Other long term (current) drug therapy; Z88.8 Allergy status to other drugs, medicaments and biological substances
CPT/HCPCS: 0241U; 36415; 36600; 71045; 71260; 80048; 80053; 82803; 83605; 83880; 84443; 84484; 85025; 85379; 87040; 87070; 87205; 93005; 93010; 94640; 94660; 94664; 94760; 94761; 94762; 97110; 97112; 97116; 97161; 99285-25; A9270; C8929; J0696; J1650; J1940; J2060; J2930; J7120; J7512; Q9957; Q9967

== ENCOUNTER 2021-07-22 23:07 | Inpatient (IN) | payer MEDICARE, BC, OTHER ==
[~2021-07-22] VITALS: Ht 157.5 cm; Wt 55.8 kg
[~2021-07-22 23:07] MED LIST changes: +AIRDUO RESPICL1 EAC5 INH; +ALBU90OI INH; +DULO30 PO; +MUCINEX600 MG PO; +Nicoderm Cq1 EAC1 TOP; +Prednisone10 MG PO; +TIOT18 INH; +Tessalon200 MG PO; +Ventolin5 MG/1 ML INH
[2021-07-23 00:12] LABS: BASOPHILS ABSOLUTE AUTO 0.08 K/mm3 (0.00-0.23); BASOPHILS PERCENT AUTO 1 % (0-2); EOSINOPHILS ABSOLUTE AUTO 0.41 K/mm3 (0.00-0.68); EOSINOPHILS PERCENT AUTO 4 % (0-6); Hematocrit 44.5 % (33.0-51.0); Hemoglobin 14.5 g/dL (11.5-16.0); IMMATURE GRAN ABSOLUTE AUTO 0.07 K/mm3 (0.00-0.10); IMMATURE GRAN PERCENT AUTO 1 % (0-1); LYMPHOCYTES ABSOLUTE AUTO 2.14 K/mm3 (0.84-5.20); LYMPHOCYTES PERCENT AUTO 19 % (21-46); MONOCYTES ABSOLUTE AUTO 0.75 K/mm3 (0.16-1.47); MONOCYTES PERCENT AUTO 7 % (4-13); Mean Corpuscular HGB 29.6 pg (26.0-34.0); Mean Corpuscular HGB Conc 32.6 g/dL (31.5-36.5); Mean Corpuscular Volume 91 fL (80-100); Mean Platelet Volume 9.9 fL (9.1-12.4); NEUTROPHILS ABSOLUTE AUTO 7.91 K/mm3 (1.96-9.15); NEUTROPHILS PERCENT AUTO 70 % (41-73); Platelet Count 258 K/mm3 (150-400); RDW Coefficient Variation 15.3 % (11.7-14.2); RDW Standard Deviation 51.1 fL (35.1-46.3); White Blood Cell Count 11.36 K/mm3 (4.00-11.30)
[2021-07-23 00:29] LABS: Albumin, Blood 3.3 g/dL (3.4-5.0); Albumin/Globulin Ratio 0.9 (0.8-1.8); Bilirubin, Total 0.4 mg/dL (0.1-1.0); Bun/Creatinine Ratio 14.3 (12.0-20.0); Calcium, Blood 8.4 mg/dL (8.5-10.1); Creatinine, Blood 1.05 mg/dL (0.40-1.00); Globulin, Blood 3.8 g/dL (2.2-4.0); Potassium, Blood 4.6 mmol/L (3.5-5.5); Total Protein, Blood 7.1 g/dL (6.4-8.2)
[2021-07-23 01:56] LABS: Influenza A, PCR NEGATIVE (NEGATIVE); Influenza B, PCR NEGATIVE (NEGATIVE); Resp Syncytial Virus, PCR NEGATIVE (NEGATIVE); SARS-Cov-2 (COVID-19) PCR, MMC NEGATIVE (NEGATIVE)
[2021-07-23 04:30] LABS: BASOPHILS ABSOLUTE AUTO 0.01 K/mm3 (0.00-0.23); BASOPHILS PERCENT AUTO 0 % (0-2); EOSINOPHILS ABSOLUTE AUTO 0.02 K/mm3 (0.00-0.68); EOSINOPHILS PERCENT AUTO 0 % (0-6); Hematocrit 42.5 % (33.0-51.0); Hemoglobin 13.6 g/dL (11.5-16.0); IMMATURE GRAN ABSOLUTE AUTO 0.03 K/mm3 (0.00-0.10); IMMATURE GRAN PERCENT AUTO 0 % (0-1); LYMPHOCYTES ABSOLUTE AUTO 1.61 K/mm3 (0.84-5.20); LYMPHOCYTES PERCENT AUTO 21 % (21-46); MONOCYTES PERCENT AUTO 1 % (4-13); Mean Corpuscular HGB 29.1 pg (26.0-34.0); Mean Corpuscular Volume 91 fL (80-100); Mean Platelet Volume 9.7 fL (9.1-12.4); NEUTROPHILS ABSOLUTE AUTO 5.76 K/mm3 (1.96-9.15); NEUTROPHILS PERCENT AUTO 77 % (41-73); Platelet Count 257 K/mm3 (150-400); RDW Coefficient Variation 15.2 % (11.7-14.2); Red Blood Cell Count 4.68 M/mm3 (3.80-5.20); White Blood Cell Count 7.53 K/mm3 (4.00-11.30)
[2021-07-23 05:02] LABS: Albumin, Blood 3.2 g/dL (3.4-5.0); Albumin/Globulin Ratio 0.8 (0.8-1.8); Bilirubin, Total 0.4 mg/dL (0.1-1.0); Bun/Creatinine Ratio 15.5 (12.0-20.0); Calcium, Blood 8.2 mg/dL (8.5-10.1); Creatinine, Blood 0.97 mg/dL (0.40-1.00); Globulin, Blood 3.9 g/dL (2.2-4.0); Potassium, Blood 4.8 mmol/L (3.5-5.5); Total Protein, Blood 7.1 g/dL (6.4-8.2)
--- NOTE | 2021-07-23 05:51 | NUR ---
ADMISSION: THE PT ARROVE TO FLOOR VIA GURNEY AND WAS ABLE TO AMBULATE TO THE BED A SBA. SHE WAS VERY DYSPNEIC, WEAK, AND COULD NOT AMBULATE MORE THAN A FEW FEET WITHOUT BEING SOB. SHE CAME TO THE FLOOR ON 2L THE ED TITRATED HER DOWN, BUT SHE DID NOT TOLERATE THAT AMOUNT AND REQUIRED 5L TO REMAIN >92%. RT WAS NOTIFIED SHE REQUESTED A BREATHING AND SHE INTIALLY DIDN'T TOLERATE THE TREATMENT. THE MD WAS NOTIFIED AND 0.5 OF ATIVAN WAS ORDERED AND ADMINISTERED TO THE PT. SHE DID CALM DOWN AND WAS ABLE TO COMPLETE THE BREATHING TREATMENT. THE PT STATED THAT SHE WAS RECENTLY HERE FOR PNA AND HER BREATHING HAS BEEN DIFFICULT SINCE. SHE WAS NEGATIVE FOR COVID AND DOES NOT REQUIRE ANY ISOLATION. SHE IS NOW RESTING IN BED AND WE'LL CONTINUE TO MONITOR THE REMAINDER OF THE SHIFT.
[2021-07-23 12:48] LABS: CPK Creatine Kinase 48 U/L (26-193)
--- NOTE | 2021-07-23 14:21 | NUR ---
1300 NOTIFIED BY SHOE LACER PT HAD ELEVATED STs OF 5.5. DR MCKEE NOTIFIED AND ORDERED SECOND EKG TO BE DONE. NO CHANGES NOTED IN EKG ALL MATCH PREVIOUS EKGS PER DR MCKEE.
--- NOTE | 2021-07-23 15:49 | NUR ---
CONTACTED DR MCKEE REGARDING BP 90/47. DR STATES MILLER LOOK OVER CHART.
--- NOTE | 2021-07-23 18:20 | NUR ---
PT LETHARGIC AT BEGINNING OF SHIFT. MORE RESPONSIVE THROUGHOUT SHIFT. PT A&O, FOLLOWS COMMANDS. Q4 BREATHING TREATMENTS, PT STATES SOB IS MUCH IMPROVED. PT ON 4L NC, SATS >92%. PTS BP REMAINS LOW, MD DECREASED LASIX, CONTINUE TO MONITOR. CONTINUE IV ANTIBIOTICS AND STEROIDS. FAMILY AT BEDSIDE, DISCUSSED CARE WITH MD. PT SBA TO BEDSIDE COMMODE, PT ADVISED TO CALL PRIOR TO GETTING UP, PT COMPLIENT.
--- NOTE | 2021-07-23 18:31 | NUR ---
THIS CARDING UTILITY TENDER HAS REVIEWED ALL NOTES AND ASSESSMENTS BY JEISON DINERO AND AGREES WITH THEM.
[2021-07-23] MEDS ORDERED: OMEP20ER PO (19:33)
[2021-07-23] MEDS ORDERED: PRAMIPEXOLE0.125 M1 PO (19:34)
[2021-07-23] MEDS ORDERED: FUROSEMIDE20 MG PO (19:35)
[2021-07-23] MEDS ORDERED: TRELEGY ELLIPT1 EACH INH (19:35)
[2021-07-23 20:45] LABS: CPK Creatine Kinase 40 U/L (26-193)
--- NOTE | 2021-07-24 04:24 | NUR ---
PT IS A/OX4. SHE REMAINS ON 4L OF O2. SHE HAS NOT HAD ANY C/O DYSPNEA OR CHEST PAIN. HER BLE EDEMA IS IMPROVED; D/T HYPOTENSION THE LASIX DOSE HAS BEEN LOWERED TO 2MG. [place] [facility] [place] TELE MONITOR: ST, BBB W/ A PROLONGED QTC. HER CALL LIGHT IS WITHIN REACH AND WE'LL CONTINUE TO MONITOR.
[2021-07-24 05:49] LABS: BASOPHILS ABSOLUTE AUTO 0.03 K/mm3 (0.00-0.23); BASOPHILS PERCENT AUTO 0 % (0-2); EOSINOPHILS ABSOLUTE AUTO 0.01 K/mm3 (0.00-0.68); EOSINOPHILS PERCENT AUTO 0 % (0-6); Hematocrit 33.4 % (33.0-51.0); Hemoglobin 10.8 g/dL (11.5-16.0); IMMATURE GRAN ABSOLUTE AUTO 0.22 K/mm3 (0.00-0.10); IMMATURE GRAN PERCENT AUTO 1 % (0-1); LYMPHOCYTES ABSOLUTE AUTO 0.67 K/mm3 (0.84-5.20); LYMPHOCYTES PERCENT AUTO 3 % (21-46); MONOCYTES PERCENT AUTO 2 % (4-13); Mean Corpuscular HGB Conc 32.3 g/dL (31.5-36.5); Mean Corpuscular Volume 90 fL (80-100); Mean Platelet Volume 10.4 fL (9.1-12.4); NEUTROPHILS PERCENT AUTO 94 % (41-73); Platelet Count 208 K/mm3 (150-400); RDW Coefficient Variation 15.4 % (11.7-14.2); RDW Standard Deviation 50.7 fL (35.1-46.3); Red Blood Cell Count 3.73 M/mm3 (3.80-5.20); White Blood Cell Count 19.93 K/mm3 (4.00-11.30)
[2021-07-24 06:12] LABS: Albumin, Blood 2.7 g/dL (3.4-5.0); Anion Gap 6 mmol/L (6-16); Blood Urea Nitrogen 30 mg/dL (8-24); Bun/Creatinine Ratio 29.1 (12.0-20.0); CO2, Blood 27 mmol/L (21-32); Calcium, Blood 8.1 mg/dL (8.5-10.1); Chloride, Blood 105 mmol/L (98-108); Creatinine, Blood 1.03 mg/dL (0.40-1.00); Glomerular Filtration Rate 55 (60-); Glucose, Blood 138 mg/dL (70-99); Phosphorus, Blood 4.3 mg/dL (2.5-4.9); Sodium, Blood 138 mmol/L (136-145)
--- NOTE | 2021-07-24 17:52 | NUR ---
DAY SHIFT SUMMARY 80 YR OLD FEMALE PT WITH PNEUMONIA AND CHF. PT ON 4L O2 NC. ABLE TO STAND AND PIVOT TO BSC. ORTHOSTATIC BP TAKEN THIS SHIFT. PT IS ON TELE, REPORTED WITH SINUS TACH AT 114 HR. TAKES MEDS WHOLE IN APPLESAUCE. DIET CHANGED THIS SHIFT FROM MECH SOFT TO REGULAR. COMMUNICATED WITH PT DAUGHTER BY PHONE X2 THIS SHIFT, REGARDING LIKELY CORRIGAN OF PT GOING HOME TODAY. AT TIME OF COMMUNICATION HAD NOT ROUNDED. CALL LIGHT WITHIN REACH AND ABLE TO CALL APPROPRIATELY.
--- NOTE | 2021-07-25 04:37 | NUR ---
SHIFT SUMMARY PT CONTINUES TO GET SOB WITH EXERTION, WHICH GOES AWAY AFTER RESTING. PT DOES NOT COMPLAIN OF ANY PAIN AND HAS SLEPT FOR THE LAST FEW HOURS. PT STILL ON 4L O2. CALL LIGHT IS WITHIN HER REACH.
[2021-07-25 05:46] LABS: BASOPHILS ABSOLUTE AUTO 0.02 K/mm3 (0.00-0.23); BASOPHILS PERCENT AUTO 0 % (0-2); EOSINOPHILS ABSOLUTE AUTO 0.01 K/mm3 (0.00-0.68); EOSINOPHILS PERCENT AUTO 0 % (0-6); Hematocrit 33.6 % (33.0-51.0); IMMATURE GRAN ABSOLUTE AUTO 0.18 K/mm3 (0.00-0.10); IMMATURE GRAN PERCENT AUTO 1 % (0-1); LYMPHOCYTES ABSOLUTE AUTO 0.82 K/mm3 (0.84-5.20); LYMPHOCYTES PERCENT AUTO 4 % (21-46); MONOCYTES ABSOLUTE AUTO 0.38 K/mm3 (0.16-1.47); MONOCYTES PERCENT AUTO 2 % (4-13); Mean Corpuscular HGB 29.4 pg (26.0-34.0); Mean Corpuscular HGB Conc 32.7 g/dL (31.5-36.5); Mean Corpuscular Volume 90 fL (80-100); Mean Platelet Volume 10.6 fL (9.1-12.4); NEUTROPHILS ABSOLUTE AUTO 20.36 K/mm3 (1.96-9.15); NEUTROPHILS PERCENT AUTO 94 % (41-73); Platelet Count 234 K/mm3 (150-400); RDW Coefficient Variation 15.4 % (11.7-14.2); RDW Standard Deviation 51.5 fL (35.1-46.3); Red Blood Cell Count 3.74 M/mm3 (3.80-5.20); White Blood Cell Count 21.77 K/mm3 (4.00-11.30)
[2021-07-25 06:09] LABS: Albumin, Blood 2.7 g/dL (3.4-5.0); Anion Gap 7 mmol/L (6-16); Blood Urea Nitrogen 43 mg/dL (8-24); Bun/Creatinine Ratio 42.6 (12.0-20.0); CO2, Blood 27 mmol/L (21-32); Calcium, Blood 8.7 mg/dL (8.5-10.1); Chloride, Blood 104 mmol/L (98-108); Creatinine, Blood 1.01 mg/dL (0.40-1.00); Glomerular Filtration Rate 56 (60-); Glucose, Blood 129 mg/dL (70-99); Phosphorus, Blood 4.1 mg/dL (2.5-4.9); Potassium, Blood 4.7 mmol/L (3.5-5.5); Sodium, Blood 138 mmol/L (136-145)
[2021-07-25] MEDS ORDERED: Lisinopril2.5 MG PO (17:35)
[2021-07-25] MEDS ORDERED: ALBU2.5V5 INH ×2 (17:41)
[2021-07-25] MEDS ORDERED: FURO20 PO (17:46)
[2021-07-25] MEDS ORDERED: CARV3.125 PO (17:53)
[2021-07-25] MEDS ORDERED: AUGMENTIN 500-1 EACH PO (17:55)
[2021-07-25] MEDS ORDERED: IPRAT-ALBUT 0.5-3 ML INH (17:57)
[2021-07-25] MEDS ORDERED: PRED20 PO (17:59)
[2021-07-25] MEDS ORDERED: LACT PO (18:03)
--- NOTE | 2021-07-25 18:06 | NUR ---
DAY SHIFT SUMMARY PT TO DISCHARGE THIS EVENING. AWAITING RT HOME O2 EVAL NOTE TO BE ENTERED FOR DISCHARGE TO BE COMPLETED. HOME O2 EVAL HAS BEEN PERFORMED. PT'S YANY HAS COME AND PICKED UP PERSONAL BELONINGS, AND HELPED PT TO GET DRESSED. IV HAS BEEN REMOVED. CALL LIGHT REMAINS IN REACH AND PT ABLE TO CALL APPROPRIATELY. WILL CONTINUE TO MONITOR PT TIL END OF SHIFT OR DISCHARGE IS COMPLETE.
--- NOTE | 2021-07-25 18:31 | NUR ---
CHANGES TO HOME 02 ORDERS FAXED TO [facility], [place].
--- NOTE | 2021-07-25 18:36 | NUR ---
DISCHARGE SUMMARY IV AND TELE REMOVED PRIOR TO D/C, DISCHARGE EDUCATION REVIEWED AND SIGNED BY PT. HARD COPY RX FOR BSC GIVEN TO PT. MEDS FAXED TO PHARMACY. PERSONAL BELONGINGS GATHERED BY GRANDDAUGHTER AND TAKEN HOME PRIOR TO COMPLETION OF DISCHARGE. PT AWAITING GRANDDAUGHTERS RETURN TO LEAVE.
--- NOTE | 2021-07-25 19:13 | NUR ---
NURSE NOTE: DISCHARGE PATIENT DISCHARGED AT 1913. FAMILY AT BEDSIDE ESCORTING PATIENT TO VEHICLE VIA WHEELCHAIR. HOME OXYGEN TANK SET UP FOR TRANSPORT. DISCHARGE PAPERWORK PROVIDED AND REVIEWED WITH RN ON PRIOR SHIFT. IV REMOVED.
== END 2021-07-25 19:21 | disposition home or self-care (01) | DRG 196 ==
LOC: ER 23:07 → MEDS 07-23 03:01
PROVIDERS: Emergency Medicine; Internal Medicine; ADMIT Internal Medicine
DX: J84.9 Interstitial pulmonary disease, unspecified (principal); I50.23 Acute on chronic systolic (congestive) heart failure; J96.01 Acute respiratory failure with hypoxia; J44.1 Chronic obstructive pulmonary disease with (acute) exacerbation; I11.0 Hypertensive heart disease with heart failure; Z86.73 Personal history of transient ischemic attack (TIA), and cerebral infarction without residual deficits; Z66 Do not resuscitate; Z23 Encounter for immunization; F17.210 Nicotine dependence, cigarettes, uncomplicated; Z99.81 Dependence on supplemental oxygen; K21.9 Gastro-esophageal reflux disease without esophagitis; Z79.82 Long term (current) use of aspirin; Z79.899 Other long term (current) drug therapy; Z88.8 Allergy status to other drugs, medicaments and biological substances; Z90.710 Acquired absence of both cervix and uterus; Z98.890 Other specified postprocedural states; Z98.49 Cataract extraction status, unspecified eye; F32.A Depression, unspecified; I27.20 Pulmonary hypertension, unspecified
CPT/HCPCS: 0241U; 36415; 71045; 80053; 80069; 82550; 83605; 83880; 84484; 85025; 92526; 92610; 93005; 93010; 94640; 94664; 94760; 94761; 94762; 96374; 99285-25; A9270; J0456; J0696; J1650; J1940; J2060; J2930; J7050

== ENCOUNTER 2021-09-14 03:33 | Emergency (ER) | payer MEDICARE, OTHER ==
[~2021-09-14] VITALS: Ht 157.5 cm; Wt 56.7 kg
[~2021-09-14 03:33] MED LIST changes: +AUGMENTIN 500-1 EACH PO; +FURO20 PO; +FUROSEMIDE20 MG PO; +IPRAT-ALBUT 0.5-3 ML INH; +LACT PO; +Lisinopril2.5 MG PO; +OMEP20ER PO; +PRAMIPEXOLE0.125 M1 PO; +PRED20 PO; +TRELEGY ELLIPT1 EACH INH
[2021-09-14 04:15] LABS: BASOPHILS ABSOLUTE AUTO 0.13 K/mm3 (0.00-0.23); BASOPHILS PERCENT AUTO 1 % (0-2); EOSINOPHILS ABSOLUTE AUTO 0.61 K/mm3 (0.00-0.68); EOSINOPHILS PERCENT AUTO 4 % (0-6); Hematocrit 43.8 % (33.0-51.0); Hemoglobin 14.3 g/dL (11.5-16.0); IMMATURE GRAN ABSOLUTE AUTO 0.05 K/mm3 (0.00-0.10); IMMATURE GRAN PERCENT AUTO 0 % (0-1); LYMPHOCYTES ABSOLUTE AUTO 3.86 K/mm3 (0.84-5.20); LYMPHOCYTES PERCENT AUTO 27 % (21-46); MONOCYTES ABSOLUTE AUTO 0.69 K/mm3 (0.16-1.47); MONOCYTES PERCENT AUTO 5 % (4-13); Mean Corpuscular HGB 28.5 pg (26.0-34.0); Mean Corpuscular HGB Conc 32.6 g/dL (31.5-36.5); Mean Corpuscular Volume 87 fL (80-100); Mean Platelet Volume 10.6 fL (9.1-12.4); NEUTROPHILS ABSOLUTE AUTO 8.77 K/mm3 (1.96-9.15); NEUTROPHILS PERCENT AUTO 62 % (41-73); Platelet Count 206 K/mm3 (150-400); RDW Coefficient Variation 14.4 % (11.7-14.2); RDW Standard Deviation 46.2 fL (35.1-46.3); Red Blood Cell Count 5.01 M/mm3 (3.80-5.20); White Blood Cell Count 14.11 K/mm3 (4.00-11.30)
[2021-09-14 04:29] LABS: Albumin, Blood 3.2 g/dL (3.4-5.0); Bilirubin, Total 0.7 mg/dL (0.1-1.0); Calcium, Blood 8.4 mg/dL (8.5-10.1); Creatinine, Blood 0.95 mg/dL (0.40-1.00); Globulin, Blood 3.1 g/dL (2.2-4.0); Potassium, Blood 3.7 mmol/L (3.5-5.5); Total Protein, Blood 6.3 g/dL (6.4-8.2)
[2021-09-14 05:05] LABS: Influenza A, PCR NEGATIVE (NEGATIVE); Influenza B, PCR NEGATIVE (NEGATIVE); Resp Syncytial Virus, PCR NEGATIVE (NEGATIVE); SARS-Cov-2 (COVID-19) PCR, MMC NEGATIVE (NEGATIVE)
[2021-09-14] MEDS ORDERED: Lasix40 MG PO (07:49)
[2021-09-14] MEDS ORDERED: Prednisone20 MG PO (07:49)
[2021-09-14] MEDS ORDERED: Zithromax250 MG PO (07:49)
== END 2021-09-14 09:09 | disposition home or self-care (01) ==
LOC: ER 03:33
PROVIDERS: Student in an Organized Health Care Education/Training Program
DX: J43.9 Emphysema, unspecified (principal); I11.0 Hypertensive heart disease with heart failure; I50.9 Heart failure, unspecified; Z86.73 Personal history of transient ischemic attack (TIA), and cerebral infarction without residual deficits; F17.210 Nicotine dependence, cigarettes, uncomplicated; Z79.899 Other long term (current) drug therapy; Z79.52 Long term (current) use of systemic steroids; Z79.02 Long term (current) use of antithrombotics/antiplatelets; Z79.82 Long term (current) use of aspirin; Z91.041 Radiographic dye allergy status; Z91.048 Other nonmedicinal substance allergy status; Z20.822 Contact with and (suspected) exposure to COVID-19
CPT/HCPCS: 0241U; 71045; 80053; 83880; 84484; 85025; 93005; 93010; 94640; 94664; A9270; J1940